=== PATIENT | male | born 1960 | race Caucasian/White ===

== ENCOUNTER 2018-04-08 20:12 | Inpatient (IN) | payer OTHER ==
--- NOTE | 2018-04-08 20:21 | PDOC ---
Rapid Medical Evaluation Chief Complaint: Chest Pain Time Seen by Provider: 04/08/18 20:16 Medical Evaluation: 04/08/18 20:17 I have performed a brief in-person evaluation of this patient. The patient presents with a chief complaint of: (friends brought patient in, states has been trying to bring x 3 days). Palpitations and Chest pain x 1 week , but been binge drinking. Had alcohol related incident last year same. + pacemaker 2007 . Some SOB/ cough Pertinent physical exam findings: + intoxicated - alert but unable to answer questions.; 93%pulse ox/ I have ordered the following: EKG The patient will proceed to the ED for further evaluation. 04/08/18 20:21 04/08/18 20:23 Discharge Disposition - Diagnosis Palpitations - Referrals - Patient Instructions - Post Discharge Activity
--- NOTE | 2018-04-08 20:45 | PDOC ---
Attending Attestation - Resident Resident Name: Maya Wood - ED Attending Attestation I have performed the following: I have examined & evaluated the patient, The case was reviewed & discussed with the resident, I agree w/resident's findings & plan, Exceptions are as noted - HPI HPI: 04/08/18 22:09 57y M hx of CAD s/p [place] sp AICD, etoh abuse, presents for evaluation of CP. Pt has been binge drinking whiskey the past few weeks, and endorses feeling episodic L sided chest pain that is sharp in nature and lasts for several hours. Denies associated n/v, sob, diaphoresis, or radiation of the pain. No exertional nature of the pain. Pt dnies any cp currently. - Physicial Exam PE: 04/08/18 22:11 GENERAL: The patient is awake, alert, and fully oriented, Nontoxic - in no acute distress. HEAD: Normocephalic, atraumatic. EYES: extraocular movements intact, sclera anicteric, conjunctiva clear. ENT: Normal voice, dry mucous membranes. NECK: Normal range of motion, supple LUNGS: Breath sounds equal, clear to auscultation bilaterally. No wheezes, no rhonchi, no rales. HEART: Regular rate and rhythm, normal S1 and S2 without murmur, rub or gallop. ABDOMEN: Soft, nontender, No guarding, no rebound. . No CVA tenderness EXTREMITIES: Normal range of motion, trace pitting edema. NEUROLOGICAL: No facial assymetry, Normal speech, PSYCH: Normal mood, normal affect. SKIN: Warm, Dry, normal turgor, - Medical Decision Making 04/08/18 21:17 will r/o ACS asa given will observe for withdrawal anticipae observation 04/08/18 23:33 His labs were reviewed was noted have a troponin of 0.17. lipase was also elevated in the 400s. Will admit to medicine for further management of chest pain Heart Score/ECG Review - ECG Impressions Comment:: 04/08/18 22:15 Twelve-lead EKG was performed and reviewed by me. There is normal sinus rhythm with a normal rate. Rate of 93 Incomplete right bundle-branch block LVH Abnormal R wave progression No prior EKGs for comparison
[2018-04-08] MEDS ORDERED: ASPIRIN 81 MG CHEWABLE TABLETS PO ONE (20:55)
--- NOTE | 2018-04-08 21:01 | PDOC ---
History of Present Illness - General Chief Complaint: Chest Pain Stated Complaint: ALCOHOL INTOXICATION Time Seen by Provider: 04/08/18 20:16 History Source: Patient, Friend Exam Limitations: Intoxication - History of Present Illness Initial Comments: Pt is a 57 yo M, with PMH of alcohol abuse ("drinking whiskey all through the day"), HTN and cardiac history ([place] and pacemaker placed 2007), who is presenting with chest pain since this afternoon, and was brought to the ER by his friends. Pt is intoxicated and cannot describe exactly what the chest pain is like. He was previously on anti-coagulation for "a clot" but does not know the details, and has not been taking the medication for some time. Pt states he is not having nausea/vomiting or radiation to his arms like his prior [place]. However his friends state that this time every year the pt binge drinks heavily for about 2-3 weeks and has chest pain symptoms. The pt does desire to go to rehab. He has had seizures from withdrawal and has been intubated in the past. Pts last drink was in the cab on the way to the hospital. Pt has no family in [place] and lives by himself. Friend's name is Khari and can be reached at [phone]. Pt denies any cigarette or drug use. Pt denies any recent travel or sick contacts. 04/08/18 20:57 04/08/18 22:06 Past History - Travel Traveled outside of the country in the last 30 days: No Close contact w/someone who was outside of country & ill: No - Past Medical History Allergies/Adverse Reactions: Allergies Allergy/AdvReac Type Severity Reaction Status Date / Time No Known Allergies Allergy Verified 04/08/18 20:19 Home Medications: Ambulatory Orders Aspirin [ASA -] 81 mg PO DAILY 04/08/18 Chlordiazepoxide [Librium -] 25 mg PO TID 04/08/18 Cardiac Disorders: Yes (PACEMAKER) Hx Myocardial Infarction: Yes COPD: No DVT: No Diabetes: No HTN: Yes Seizures: Yes (alcohol withdrawal) - Surgical History Cardiac Surgery: Yes (PACEMAKER) - Family Disease History Family Disease History: Heart Disease: Mother ([place] in 70s) - Suicide/Smoking/Psychosocial Hx Smoking History: Never smoked Review of Systems - Review of Systems Able to Perform ROS?: Yes (limited/tox) Is the patient limited Kyrgyz proficient: Yes Constitutional: Yes: Weight Stable. No: Fever, Loss of Appetite HEENTM: No: Recent change in vision, Nose Congestion, Throat Pain Respiratory: No: Cough, Orthopnea, Shortness of Breath Cardiac (ROS): Yes: Chest Pain (details unclear, unable to describe quality or exacerbating/alleviating factors). No: Edema, Irregular Heart Rate, Palpitations, Syncope ABD/GI: No: Diarrhea, Nausea, Poor Appetite, Poor Fluid Intake, Vomiting : No: Pain Musculoskeletal: No: Back Pain, Joint Pain Neurological: Yes: Seizure (alcohol withdrawal), Unsteady Gait (alcohol use). No: Ataxia, Dizziness Psychiatric: Yes: Emotional Problems (binge drinking this time of year for weeks , every year). No: Change in Appetite Endocrine: No: Change in Weight Hematologic/Lymphatic: Yes: Blood Clots (uncertain history? prior anticoagulation). No: Anemia, Easy Bleeding, Easy Bruising All Other Systems: Reviewed and Negative *Physical Exam - Vital Signs Last Vital Signs Temp Pulse Resp BP Pulse Ox 97.8 F 105 H 16 128/88 94 L 04/08/18 20:16 04/08/18 20:16 04/08/18 20:16 04/08/18 20:16 04/08/18 20:16 - Physical Exam General Appearance: Yes: Nourished, Appropriately Dressed, Alcohol on Breath, Intoxicated. No: Apparent Distress (pt intoxicated, but lying comfortably and can answer some questions. Rambling speech.) HEENT: positive: EOMI, MARIANA, Normal Voice, Hearing Grossly Normal, Other (dark, hairy tongue). negative: Normal ENT Inspection, Pharynx Normal, Scleral Icterus (R), Scleral Icterus (L), Pharyngeal Erythema, Tonsillar Exudate, Tonsillar Erythema, Nasal Congestion, Rhinorrhea, Thrush Neck: positive: Trachea midline, Normal Thyroid, Supple. negative: Tender, Rigid, Lymphadenopathy (R), Lymphadenopathy (L) Respiratory/Chest: positive: Lungs Clear, Normal Breath Sounds. negative: Chest Tender, Respiratory Distress, Accessory Muscle Use, Labored Respiration, Crackles, Wheezing Cardiovascular: positive: Regular Rhythm, S1, S2, Tachycardia. negative: Regular Rate, Edema, JVD, Murmur Vascular Pulses: Carotid (R): 4+, Carotid (L): 4+ Gastrointestinal/Abdominal: positive: Normal Bowel Sounds, Flat, Soft. negative : Tender, Organomegaly, Pulsatile Mass, Distended, Guarding, Rebound Rectal Exam: positive: deferred Lymphatic: negative: Adenopathy, Tenderness Musculoskeletal: positive: Normal Inspection. negative: CVA Tenderness Extremity: positive: Normal Capillary Refill, Normal Inspection, Normal Range of Motion, Pelvis Stable. negative: Tender, Pedal Edema, Calf Tenderness Integumentary: positive: Normal Color, Dry, Warm. negative: Jaundice, Clammy, Diaphoresis, Ecchymosis Neurologic: positive: drafter II-XII NML intact, Alert, Normal Response, Motor Strength 5/5, Depressed Affect. negative: Fully Oriented (oriented to year, person, and place), Normal Mood/Affect (intoxicated), EOM Palsy, Facial Droop ED Treatment Course - LABORATORY CBC & Chemistry Diagram: 04/08/18 21:40 04/08/18 21:40 - RADIOLOGY Radiology Studies Ordered: Category Date Time Status CHEST X-RAY PORTABLE* [RAD] Stat Radiology 04/08/18 20:53 Ordered Medical Decision Making - Medical Decision Making Pt was seen at bedside, also will be seen by attending Dr. Sevilla. Pt presenting with chest pain since this afternoon, and was brought to the ER by his friends. Pt is intoxicated and cannot describe exactly what the chest pain is like. He has PMH of alcohol abuse ("drinking whiskey all through the day") and cardiac history ([place] and pacemaker placed 2007), and HTN. He was previously on anti- coagulation for "a clot" but does not know the details, and has not been taking the medication for some time. Pt states he is not having nausea/vomiting or radiation to his arms like his prior [place]. However his friends state that this time every year the pt binge drinks heavily for about 2-3 weeks and has chest pain symptoms. The pt does desire to go to rehab. He has had seizures from withdrawal and has been intubated in the past. Pts last drink was in the cab on the way to the hospital. Vitals stable, pt tachycardic (105), BP 128/88, O2 94% (will continue to monitor vital signs). PE showed intoxicated man, unable to ambulate without assistance. Oriented to person, year, president (does not know month or day). Pacemaker in L upper chest. No focal chest tenderness, heart and lung sounds clear, no murmur/rubs. No jvd or LE swelling. drafter and muscular strength intact. No tongue fasciculation or hand tremor noted. Dark hairy tongue present. Considering ACS vs angina vs pancreatitis. Minimal suspicion of AAA/dissection ( pt vitals stable, no radiation to abdomen or back). Minimal suspicion of PE given no SOB, no recent travel/bedrest. Ordered work-up including CBC, CMP, lipase, ECG, cardiac profile, coags, UA, urine culture, alcohol level and chest x-ray. Pt currently denying any pain medication. Will continue to reassess pt and monitor for symptomatic improvement, as well as any interventions needed for withdrawal. Providing pt with 243 mg PO aspirin (pt took 1 baby aspirin this AM). 04/08/18 20:56 04/08/18 21:37 ECG showed RBBB, ST changes in V1, V2, no reciprocal changes, intervals WNL. BP 146/102, O2 94% on RA, HR 95. Pt sleeping comfortably. Labs were sent and are pending. 04/08/18 22:14 CBC: platelets 117 CMP: AST 124, ALT 116, otherwise generally WNL Coags WNL Alcohol 300 Lipase 503 CKMB 4.8, Trop .17 Placed order for second troponin (draw at 00:40), providing 50 mg librium and IV banana bag. Discussed case with Dr. Camargo, who has accepted the pt. Decision to admit order placed for telemetry observation. 04/08/18 23:40 Pt was taken to telemetry floor for additional monitoring. Pt was stable when leaving department. 04/09/18 01:55 *DC/Admit/Observation/Transfer Diagnosis at time of Disposition: Chest pain Qualifiers: Chest pain type: unspecified Qualified Code(s): R07.9 - Chest pain, unspecified Alcohol intoxication Qualifiers: Complication of substance-induced condition: uncomplicated Qualified Code(s): F10.920 - Alcohol use, unspecified with intoxication, uncomplicated - Discharge Dispostion Decision to Admit order: Yes - Referrals - Patient Instructions - Post Discharge Activity
[2018-04-08] MEDS ORDERED: ASPIRIN 81 MG CHEWABLE TABLETS ONE ×2 (21:32→21:44)
[2018-04-08 22:15] LABS: BASO % 0.2 % (0-2.0); EOS % 2.2 % (0-4.5); HEMATOCRIT 43.2 % (35.4-49); HEMOGLOBIN 14.8 GM/dL (11.7-16.9); LYMPH % 26.9 % (8-40); MCHC 34.3 g/dl (32.0-35.9); MEAN CELL VOLUME 90.4 fl (80-96); MEAN PLT VOLUME 7.8 fl (7.5-11.1); MONO % 7.8 % (3.8-10.2); NEUT % 62.9 % (42.8-82.8); PLATELET COUNT 117 K/MM3 (134-434); RBC 4.78 M/mm3 (4.00-5.60); RDW 13.4 % (11.9-15.9); WHITE BLOOD COUNT 5.5 K/mm3 (4.0-10.0)
[2018-04-08 22:29] LABS: INR 0.97 (0.83-1.09); PROTHROMBIN TIME (PATIENT) 11.5 SEC (9.7-13.0)
[2018-04-08 22:32] LABS: ACTIVATED PTT 28.9 SECONDS (25.2-36.5)
[2018-04-08 22:36] LABS: ALK PHOS 117 U/L (45-117); ANION GAP 12 MMOL/L (8-16); BILIRUBIN,TOTAL 0.9 mg/dL (0.2-1); BLOOD UREA NITROGEN 12 mg/dL (7-18); CALCIUM 8.1 mg/dL (8.5-10.1); CHLORIDE 100 mmol/L (98-107); CO2 28 mmol/L (21-32); CREATININE 0.7 mg/dL (0.55-1.3); GLUCOSE,RANDOM 92 mg/dL (74-106); POTASSIUM 3.7 mmol/L (3.5-5.1); SGOT/AST 124 U/L (15-37); SGPT/ALT 116 U/L (13-61); SODIUM 140 mmol/L (136-145); TOT PROT 7.1 g/dl (6.4-8.2)
[2018-04-08] MEDS ORDERED: chlordiazePOXIDE HCL 25 MG CAPSULE PO ONE (23:31)
[2018-04-08] MEDS ORDERED: chlordiazePOXIDE HCL 25 MG CAPSULE ONE (23:37)
[2018-04-08] MEDS ORDERED: FOLIC ACID INJECTION - 1 MG, THIAMINE HCL 100 MG, MULTIVIT INJECTION ADULT 10 ML in SOD... IVPB ONE (23:48)
--- NOTE | 2018-04-09 00:39 | PN ---
Teaching Attending Note Name of Resident: Julissa Ritter ATTENDING PHYSICIAN STATEMENT I saw and evaluated the patient. I reviewed the resident's note and discussed the case with the resident. I agree with the resident's findings and plan as documented. SUBJECTIVE: Patient is a 57 year old man with PMH of alcohol abuse ("drinking whiskey all through the day"), HTN, CAD (MD and pacemaker/defibrillator placed at [facility] in 2007) and unspecified arrhythmia who presents with chest pain since this afternoon. Was brought to the ER by his friends. He is intoxicated and cannot describe exactly what the chest pain is like. He was previously on anti- coagulation for "a clot" but does not know the details, and has not been taking the medication for some time. He is not having nausea/vomiting or radiation to his arms like his prior [place]. However his friends state that this time every year the patient binge drinks heavily for about 2-3 weeks and has chest pain symptoms. He has had seizures from withdrawal and has been intubated in the past. His last drink was in the cab on the way to the hospital. 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 OBJECTIVE: Awake, intoxicated and mumbling Vital Signs Period Temp Pulse Resp BP Sys/Kohli Pulse Ox Last 24 Hr 97.8 F 85-105 14-18 128-146/88-102 94-96 HEENT: No Jaundice, eye redness or discharge, PERRLA, EOMI. Normocephalic, atraumatic. External ears are normal and hearing is grossly intact. No nasal discharge. Neck: Supple, nontender. No palpable adenopathy or thyromegaly. No JVD Chest: Defibrillator left chest wall. Good effort. Clear to auscultation and percussion. Heart: Regular. No S3, rub or murmur Abdomen: Not distended, soft, nontender and no HSM. No rebound or guarding. Normoactive bowel sounds. Ext: Peripheral pulses intact. No leg edema. Finger clubbing with unkempt finger nails. Skin: Warm and dry. No petechiae, rash or ecchymosis. Neuro: Somnolent but readily arousable. Disoriented. No tremors or asterexis. Sensation grossly intact in all four extremities and DTR are symmetric. Current Medications Generic Name Dose Route Start Last Admin Trade Name Freq PRN Reason Stop Dose Admin Folic Acid 1 mg/ Thiamine HCl 1,000 mls @ 125 mls/hr 04/08/18 23:48 04/09/18 00:25 100 mg/ Multivitamins/Minerals IVPB 04/09/18 07:47 125 mls/hr 10 ml/ Sodium Chloride ONCE ONE Administration Home Medications Medication Instructions Recorded Aspirin [ASA -] 81 mg PO DAILY 04/08/18 Chlordiazepoxide [Librium -] 25 mg PO TID 04/08/18 Abnormal Lab Results 04/08/18 04/08/18 04/08/18 21:40 21:40 21:40 Plt Count 117 L Calcium 8.1 L AST 124 H ALT 116 H Creatine Kinase 441 H CK-MB (CK-2) 4.8 H Troponin I 0.17 H Lipase Ur Specific [place] Alcohol, Quantitative 300.67478 H 04/08/18 04/09/18 21:40 00:52 Plt Count Calcium AST ALT Creatine Kinase CK-MB (CK-2) Troponin I Lipase 503 H Ur Specific [place] 1.006 L Alcohol, Quantitative ASSESSMENT AND PLAN: 1. Chest pain - Now painfree with elevated troponin but no ACS changes on EKG. No acute pathology on CXR. Will admit to telemetry to rule out ACS. Got Aspirin in the ER. Will get ECHO, consult cardiology and retrieve his records from [facility]. Will decide on anticoagulation based on repeat troponin. 2. Alcohol intoxication - Getting IV Banana bag. Implement CIWA librium alcohol withdrawal protocol, fall and aspiration precautions. Treat with thiamine and folic acid and monitor electrolytes (Ca,Mg,K,P). Get upper abdominal sonogram and hepatitis serology to investigate elevated LFTs and thrombocytopenia. Ethylbenzene Oxidizer patient about abstaining from alcohol and refer to alcohol detox upon discharge. Consult engineering specialist technician. 3. DVT prophylaxis - Lovenox 40 mg SQ q 24 hours. 4. Advance directives - Full code
[2018-04-09 01:04] LABS: URINE APPEARANCE CLEAR; URINE BILIRUBIN NEGATIVE (<2.0 mg/dL); URINE COLOR LTYELLOW; URINE GLUCOSE (UA) NEGATIVE (NEGATIVE); URINE KETONE NEGATIVE (NEGATIVE); URINE LEUK ESTERASE NEGATIVE (NEGATIVE); URINE NITRITE NEGATIVE (NEGATIVE); URINE PROTEIN NEGATIVE (NEGATIVE); URINE UROBILINOGEN 4.0 E.U/dl mg/dL (0.2-1.0)
[2018-04-09 01:09] LABS: COCAINE, UR NEGATIVE ng/ml (CUTOFF=300); METHADONE, UR NEGATIVE ng/ml (CUTOFF=300); OPIATES, URI NEGATIVE ng/ml (CUTOFF=300); PHENCYCLIDINE,URINE NEGATIVE ng/ml (CUTOFF=25); URINE AMPHETAMINES NEGATIVE ng/ml (CUTOFF=500); URINE BARBITURATES NEGATIVE ng/ml (CUTOFF=200); URINE BENZODIAZEPINES NEGATIVE ng/ml (CUTOFF=200)
[2018-04-09] MEDS ORDERED: HEPARIN NA (PORCINE) 5,000 UNITS/ML 1ML VIAL ONE (01:37)
[2018-04-09] MEDS: HEPARIN NA (PORCINE) 5,000 UNITS/ML 1ML VIAL SQ SCH ×4 (01:40→22:15)
--- NOTE | 2018-04-09 01:58 | HP ---
CHIEF COMPLAINT: chest pain, intoxication PCP: unknown HISTORY OF PRESENT ILLNESS: Patient is a 57 y/o male with a history of CAD s/p [place] with ACID and alcohol abuse who presents intoxicated with chest pain. He reports he has this chest pain on and off and currently reports he doesn't have any pain. he was not able to describe the pain. Patient reports ten years ago he had an episode of seizures where he was intubated and at [facility] and the defibrillator was placed. He believes he had the defibrillator place for arrythmias. He had another episode 3-4? years ago where he had a [place]. Patient reports he follows with a Lending Consultant, currently unsure of the location. Patient denies being short of breath. Patient is intoxicated and is a poor historian. ER course was notable for: (1) ASA 243 (2) Librium 50 once (3) Recent Travel: PAST MEDICAL HISTORY: CAD s/p [place] with ACID and alcohol abuse PAST SURGICAL HISTORY: unknown Social History: Smoking: denies Alcohol: 1-1.5 bottles of whiskey a day Drugs: denies Family History: father of liver cancer at 60 Allergies No Known Allergies Allergy (Verified 04/08/18 20:19) HOME MEDICATIONS: Home Medications Medication Instructions Recorded Aspirin [ASA -] 81 mg PO DAILY 04/08/18 Chlordiazepoxide [Librium -] 25 mg PO TID 04/08/18 REVIEW OF SYSTEMS CONSTITUTIONAL: Absent: fever, chills, diaphoresis, generalized weakness, malaise, loss of appetite, weight change HEENT: Absent: rhinorrhea, nasal congestion, throat pain, throat swelling, difficulty swallowing, mouth swelling, ear pain, eye pain, visual changes CARDIOVASCULAR: chest pain Absent: , syncope, palpitations, irregular heart rate, lightheadedness, peripheral edema RESPIRATORY: Absent: cough, shortness of breath, dyspnea with exertion, orthopnea, wheezing, stridor, hemoptysis GASTROINTESTINAL: Absent: abdominal pain, abdominal distension, nausea, vomiting, diarrhea, constipation, melena, hematochezia GENITOURINARY: Absent: dysuria, frequency, urgency, hesitancy, hematuria, flank pain, genital pain MUSCULOSKELETAL: Absent: myalgia, arthralgia, joint swelling, back pain, neck pain SKIN: Absent: rash, itching, pallor HEMATOLOGIC/IMMUNOLOGIC: Absent: easy bleeding, easy bruising, lymphadenopathy, frequent infections ENDOCRINE: Absent: unexplained weight gain, unexplained weight loss, heat intolerance, cold intolerance NEUROLOGIC: Absent: headache, focal weakness or paresthesias, dizziness, unsteady gait, seizure, mental status changes, bladder or bowel incontinence PSYCHIATRIC: Absent: anxiety, depression, suicidal or homicidal ideation, hallucinations. PHYSICAL EXAMINATION Vital Signs - 24 hr 04/08/18 04/08/18 04/08/18 20:16 20:45 22:55 Temperature 97.8 F Pulse Rate 105 H Pulse Rate [ 94 H 94 H Right Radial] Respiratory 16 18 18 Rate Blood Pressure 128/88 Blood Pressure 146/102 H 136/90 [Right Arm] O2 Sat by Pulse 94 L 96 95 Oximetry (%) 04/08/18 04/09/18 23:30 00:40 Temperature 98.2 F Pulse Rate Pulse Rate [ 85 91 H Right Radial] Respiratory 14 16 Rate Blood Pressure Blood Pressure 137/99 136/96 [Right Arm] O2 Sat by Pulse 95 97 Oximetry (%) GENERAL: Awake, alert, HEAD: Normal with no signs of trauma. EYES: Pupils equal, round and reactive to light, extraocular movements intact EARS, NOSE, THROAT: Moist mucous membranes. NECK: Normal range of motion LUNGS: Breath sounds equal, clear to auscultation bilaterally. No wheezes, and no crackles. No accessory muscle use. HEART: Regular rate and rhythm, normal S1 and S2 without murmur, rub or gallop. ACID at upper left chest ABDOMEN: Soft, nontender, not distended, normoactive bowel sounds, no guarding, no rebound, no masses. No hepatomegaly MUSCULOSKELETAL: Normal range of motion at all joints. No bony deformities or tenderness. No CVA tenderness. LOWER EXTREMITIES: 2+ pulses, warm, well-perfused. No calf tenderness. No peripheral edema. . PSYCHIATRIC: Cooperative. SKIN: Warm, dry, normal turgor, no rashes or lesions noted, normal capillary refill. Laboratory Results - last 24 hr CBC, BMP 04/08/18 21:40 04/08/18 21:40 Urine Test Results Urine Color Ltyellow 04/09/18 00:52 Urine Appearance Clear 04/09/18 00:52 Urine pH 6.0 (5.0-8.0) 04/09/18 00:52 Ur Specific [place] 1.006 (1.010-1.035) L 04/09/18 00:52 Urine Protein Negative (NEGATIVE) 04/09/18 00:52 Urine Glucose (UA) Negative (NEGATIVE) 04/09/18 00:52 Urine Ketones Negative (NEGATIVE) 04/09/18 00:52 Urine Blood Negative (NEGATIVE) 04/09/18 00:52 Urine Nitrite Negative (NEGATIVE) 04/09/18 00:52 Urine Bilirubin Negative (<2.0 mg/dL) 04/09/18 00:52 Ur Leukocyte Esterase Negative (NEGATIVE) 04/09/18 00:52 ASSESSMENT/PLAN: Patient is a 57 y/o male with a history of CAD s/p [place] with ACID and alcohol abuse who presents intoxicated with chest pain. #chest pain r/o ACS - positive history of [place] and ACID placement - trop .17, repeat .20, f/u repeat @ 6am - EKG: LVH, incomplete RBB, repeat EKG - ASA 243 given - monitor on tele obs - f/u echo - f/u Cardio #alcohol intoxication - Alcohol level: 300 - monitor CIWA, history of DT's in the past - begin Librium protocol - consult Dr. Bliss, patient expresses wish to go to Detox - fall precautions - seizure precautions #transaminitis - AST: 124 ALT: 116 - f/u abd US - f/u hepatitis panel - continue to trend - if does not trend down consider GI consult #CAD history - continue aspirin 81 mg daily - patient unable to recall Cardizem dose so NOT restarted - pharmacy called and close, med rec in morning #mild thrombocytopenia - unknown cause, alcohol marrow suppression vs splenomegaly due to portal hypertension - Plt: 117 - f/u abd US Visit type - Emergency Visit Emergency Visit: Yes ED Registration Date: 04/08/18 Care time: The patient presented to the Emergency Department on the above date and was hospitalized for further evaluation of their emergent condition. - New Patient This patient is new to me today: Yes Date on this admission: 04/09/18 - Critical Care Critical Care patient: No
[2018-04-09] MEDS: chlordiazePOXIDE HCL 25 MG CAPSULE PO SCH ×4 (06:19→22:14)
[2018-04-09 07:33] LABS: BASO % 0.3 % (0-2.0); HEMATOCRIT 40.2 % (35.4-49); HEMOGLOBIN 13.5 GM/dL (11.7-16.9); LYMPH % 28.4 % (8-40); MCH 30.4 pg (25.7-33.7); MCHC 33.6 g/dl (32.0-35.9); MEAN CELL VOLUME 90.5 fl (80-96); MEAN PLT VOLUME 7.9 fl (7.5-11.1); MONO % 6.8 % (3.8-10.2); NEUT % 59.5 % (42.8-82.8); PLATELET COUNT 96 K/MM3 (134-434); RBC 4.44 M/mm3 (4.00-5.60); RDW 13.5 % (11.9-15.9); WHITE BLOOD COUNT 4.4 K/mm3 (4.0-10.0)
--- NOTE | 2018-04-09 07:38 | EKG ---
Test Reason : Blood Pressure : / mmHG Vent. Rate : 094 BPM Atrial Rate : 094 BPM P-R Int : 174 ms QRS Dur : 096 ms QT Int : 352 ms P-R-T Axes : 048 -40 053 degrees QTc Int : 440 ms NORMAL SINUS RHYTHM LEFT AXIS DEVIATION CANNOT RULE OUT ANTEROSEPTAL INFARCT (CITED ON OR BEFORE 08-APR-2018) ABNORMAL ECG WHEN COMPARED WITH ECG OF 08-APR-2018 20:25, NO SIGNIFICANT CHANGE WAS FOUND Confirmed by EDEL PICKENS MD ([id number]) on 04/09/2018 7:37:48 AM Referred By: Confirmed By:EDEL PICKENS MD
--- NOTE | 2018-04-09 07:40 | EKG ---
Test Reason : Blood Pressure : / mmHG Vent. Rate : 093 BPM Atrial Rate : 093 BPM P-R Int : 180 ms QRS Dur : 102 ms QT Int : 354 ms P-R-T Axes : 053 -41 040 degrees QTc Int : 440 ms NORMAL SINUS RHYTHM POSSIBLE LEFT ATRIAL ENLARGEMENT LEFT AXIS DEVIATION INCOMPLETE RIGHT BUNDLE BRANCH BLOCK LEFT VENTRICULAR HYPERTROPHY SEPTAL INFARCT , AGE UNDETERMINED ABNORMAL ECG NO PREVIOUS ECGS AVAILABLE Confirmed by EDEL PICKENS MD ([id number]) on 04/09/2018 7:40:13 AM Referred By: Confirmed By:EDEL PICKENS MD
[2018-04-09] MEDS ORDERED: PNEUMOC 13-VAL CONJ-DIP CRM/PF 0.5 ML DISP.SYRIN IM ONE (08:01)
[2018-04-09 08:08] LABS: ALBUMIN 3.5 g/dl (3.4-5.0); ALK PHOS 106 U/L (45-117); ANION GAP 12 MMOL/L (8-16); BLOOD UREA NITROGEN 13 mg/dL (7-18); CALCIUM 7.7 mg/dL (8.5-10.1); CHLORIDE 103 mmol/L (98-107); CO2 26 mmol/L (21-32); CREATININE 0.7 mg/dL (0.55-1.3); GLUCOSE,RANDOM 78 mg/dL (74-106); MAGNESIUM 1.9 mg/dL (1.8-2.4); PHOSPHOROUS 3.6 mg/dL (2.5-4.9); POTASSIUM 3.7 mmol/L (3.5-5.1); SGOT/AST 101 U/L (15-37); SGPT/ALT 96 U/L (13-61); SODIUM 141 mmol/L (136-145); TOT PROT 6.3 g/dl (6.4-8.2)
[2018-04-09] MEDS ORDERED: PNEUMOCOCCAL 23 VACCINE 0.5 ML VIAL IM ONE (10:00)
[2018-04-09] MEDS ORDERED: FLU VACCINE QUAD 60 MCG/0.5 ML (MDV 18-19) IM ONE (10:00)
[2018-04-09] MEDS ORDERED: ASPIRIN 81 MG CHEWABLE TABLETS PO SCH (10:00)
--- NOTE | 2018-04-09 10:17 | ECHO ---
Name: VALERI MORRIS Exam:Adult Echocardiogram Study Date: 04/09/2018 09:33 AM Age: 57 yrs Reason For Study: R/O ACS Height: 66 in Weight: 150 lb BSA: 1.8 m2 MMode/2D Measurements & Calculations IVSd: 0.76 cm Ao root diam: 3.7 cm LVIDd: 4.4 cm LA dimension: 3.1 cm LVIDs: 2.8 cm LVPWd: 0.81 cm EDV(Teich): 88.0 ml ESV(Teich): 30.5 ml Doppler Measurements & Calculations MV E max horacio: 47.4 cm/sec MR max horacio: 458.2 cm/sec MV A max horacio: 65.6 cm/sec MR max P.0 mmHg MV E/A: 0.72 TR max horacio: 190.1 cm/sec Med Peak E' Horacio: 8.2 cm/sec TR max P.5 mmHg Med E/e': 5.8 Lat Peak E' Horacio: 11.1 cm/sec Lat E/e': 4.3 Left Ventricle Left ventricular systolic function is grossly normal. Ejection Fraction = 50-55%. The transmitral spe ctral Doppler flow pattern is suggestive of impaired LV relaxation. Right Ventricle There is a pacemaker lead in the right ventricle. The right ventricle is grossly normal size. The rig ht ventricular systolic function is grossly normal. Atria Normal left and right atrial size and function. Mitral Valve The mitral valve is grossly normal. There is no mitral valve stenosis. There is mild mitral regurgita tion. Tricuspid Valve The tricuspid valve is not well visualized, but is grossly normal. There is mild tricuspid regurgitat ion. Aortic Valve The aortic valve opens well. No hemodynamically significant valvular aortic stenosis. No aortic regur gitation is present. Pulmonic Valve The pulmonic valve is not well seen, but is grossly normal. There is no pulmonic valvular stenosis. T here is no pulmonic valvular regurgitation. Great Vessels Borderline aortic root dilatation. Pericardium/Pleura There is no pericardial effusion. Interpretation Summary Left ventricular systolic function is grossly normal. Ejection Fraction = 50-55%. The transmitral spectral Doppler flow pattern is suggestive of impaired LV relaxation. There is a pacemaker lead in the right ventricle. The right ventricular systolic function is grossly normal. There is mild mitral regurgitation. There is mild tricuspid regurgitation. Borderline aortic root dilatation. There is no pericardial effusion. MD Guaman *Gretchen 04/09/2018 10:17 AM
--- NOTE | 2018-04-09 10:43 | CON.CARD ---
Cardiology Consult (text) - Consultation Consultation Note: cc: cp hpi: 57 m hx etoh abuse, cad/mi, icd, here with cp. Pt is intoxicated from etoh so history is limited. He denies current cp or sob or palps. Has been binge drinking for weeks and occasionally notices left upper abd pain, burning. He does not provide any details of his cad/mi/icd hx. pmh: per hpi psh: icd social: +etoh fam: unknown ros: unable to obtain 2/2 ams meds: Home Medications Medication Instructions Recorded Aspirin [ASA -] 81 mg PO DAILY 04/08/18 Chlordiazepoxide [Librium -] 25 mg PO TID 04/08/18 pe: Vital Signs Period Temp Pulse Resp BP Sys/Kohli Pulse Ox Last 24 Hr 97.8 F-98.4 F 85-105 14-18 123-146/69-102 94-98 nad no jvd rrr s1s2 no mrg cta bl, poor eff lethargic but arousable abd nt nd pos bs no jaundice diaphoresis +dp pt no carotid bruits no le e/c/c Laboratory Last Values WBC 4.4 K/mm3 (4.0-10.0) 04/09/18 05:30 RBC 4.44 M/mm3 (4.00-5.60) 04/09/18 05:30 Hgb 13.5 GM/dL (11.7-16.9) 04/09/18 05:30 Hct 40.2 % (35.4-49) 04/09/18 05:30 MCV 90.5 fl (80-96) 04/09/18 05:30 MCH 30.4 pg (25.7-33.7) 04/09/18 05:30 MCHC 33.6 g/dl (32.0-35.9) 04/09/18 05:30 RDW 13.5 % (11.9-15.9) 04/09/18 05:30 Plt Count 96 K/MM3 (134-434) L 04/09/18 05:30 MPV 7.9 fl (7.5-11.1) 04/09/18 05:30 Absolute Neuts (auto) 2.6 K/mm3 (1.5-8.0) 04/09/18 05:30 Neutrophils % 59.5 % (42.8-82.8) 04/09/18 05:30 Lymphocytes % 28.4 % (8-40) 04/09/18 05:30 Monocytes % 6.8 % (3.8-10.2) 04/09/18 05:30 Eosinophils % 5.0 % (0-4.5) H D 04/09/18 05:30 Basophils % 0.3 % (0-2.0) 04/09/18 05:30 Nucleated RBC % 0 % (0-0) 04/09/18 05:30 PT with INR 11.50 SEC (9.7-13.0) 04/08/18 21:40 INR 0.97 (0.83-1.09) 04/08/18 21:40 PTT (Actin FS) 28.9 SECONDS (25.2-36.5) 04/08/18 21:40 Sodium 141 mmol/L (136-145) 04/09/18 05:30 Potassium 3.7 mmol/L (3.5-5.1) 04/09/18 05:30 Chloride 103 mmol/L (98-107) 04/09/18 05:30 Carbon Dioxide 26 mmol/L (21-32) 04/09/18 05:30 Anion Gap 12 MMOL/L (8-16) 04/09/18 05:30 BUN 13 mg/dL (7-18) 04/09/18 05:30 Creatinine 0.7 mg/dL (0.55-1.3) 04/09/18 05:30 Creat Clearance w eGFR > 60 (>60) 04/09/18 05:30 Random Glucose 78 mg/dL (74-106) 04/09/18 05:30 Calcium 7.7 mg/dL (8.5-10.1) L 04/09/18 05:30 Phosphorus 3.6 mg/dL (2.5-4.9) 04/09/18 05:30 Magnesium 1.9 mg/dL (1.8-2.4) 04/09/18 05:30 Total Bilirubin 1.0 mg/dL (0.2-1) 04/09/18 05:30 AST 101 U/L (15-37) H 04/09/18 05:30 ALT 96 U/L (13-61) H 04/09/18 05:30 Alkaline Phosphatase 106 U/L (45-117) 04/09/18 05:30 Creatine Kinase 441 IU/L (26-308) H 04/08/18 21:40 Creatine Kinase Index 1.0 % (0.0-5.0) 04/08/18 21:40 CK-MB (CK-2) 4.8 ng/mL (0.5-3.6) H 04/08/18 21:40 Troponin I 0.17 ng/ml (0.00-0.05) H 04/09/18 05:30 Total Protein 6.3 g/dl (6.4-8.2) L 04/09/18 05:30 Albumin 3.5 g/dl (3.4-5.0) 04/09/18 05:30 Lipase 503 U/L (73-393) H 04/08/18 21:40 Urine Color Ltyellow 04/09/18 00:52 Urine Appearance Clear 04/09/18 00:52 Urine pH 6.0 (5.0-8.0) 04/09/18 00:52 Ur Specific [place] 1.006 (1.010-1.035) L 04/09/18 00:52 Urine Protein Negative (NEGATIVE) 04/09/18 00:52 Urine Glucose (UA) Negative (NEGATIVE) 04/09/18 00:52 Urine Ketones Negative (NEGATIVE) 04/09/18 00:52 Urine Blood Negative (NEGATIVE) 04/09/18 00:52 Urine Nitrite Negative (NEGATIVE) 04/09/18 00:52 Urine Bilirubin Negative (<2.0 mg/dL) 04/09/18 00:52 Urine Urobilinogen 4.0 e.u/dl mg/dL (0.2-1.0) 04/09/18 00:52 Ur Leukocyte Esterase Negative (NEGATIVE) 04/09/18 00:52 Opiates Screen Negative ng/ml (FADYUI=095) 04/09/18 00:40 Methadone Screen Negative ng/ml (IUPVRC=722) 04/09/18 00:40 Barbiturate Screen Negative ng/ml (NLVBNL=182) 04/09/18 00:40 Phencyclidine Screen Negative ng/ml (CUTOFF=25) 04/09/18 00:40 Ur Amphetamines Screen Negative ng/ml (OPMJGD=689) 04/09/18 00:40 MDMA (Ecstasy) Screen Negative ng/ml (TDQENZ=999) 04/09/18 00:40 Benzodiazepines Screen Negative ng/ml (VFRZGG=244) 04/09/18 00:40 Cocaine Screen Negative ng/ml (UAJJCG=751) 04/09/18 00:40 U Marijuana (THC) Screen Negative ng/ml (CUTOFF=50) 04/09/18 00:40 Alcohol, Quantitative 300.62800 mg/dL (0.0-5.0) H 04/08/18 21:40 ecg: sr nl intervals no ischemci changes echo 04/2018: nl lv/rv, mild mr/tr tele: sr cxr: clear lungs a/p: 57 m hx etoh abuse, cad/mi, icd, here with cp. 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
[2018-04-09] MEDS: FOLIC ACID 1 MG TABLET (FP) PO SCH (11:19)
[2018-04-09] MEDS: CYANOCOBALAMIN (VITAMIN B-12) 100 MCG TABLET PO SCH (11:19)
[2018-04-09] MEDS: THIAMINE HCL 100 MG TABLET (FP) PO SCH (11:19)
--- NOTE | 2018-04-09 15:07 | PN ---
S Progress Note (SOAP) Subjective: pt referred for consultation for alcohol intoxication , per MR brought into ED yesterday , today patient reports drinking 1-1.5 l whiskey / day x 3 days , reports tremors if not drinking , + withdrawal seizures most recently 2 weeks ago , + blackouts , + falls while intoxicated no injuries to self or others disclosed. PMHX significant for [place] , AICD 2007 , seen by cardiology today . Denies illiicts , denies tobacco use . 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 Some difficulty obtaining history from patient due to drowsiness, easily awakened by verbal stimuli. Currently on Librium taper started 5 am today , received 2 doses of Librium most recently @ 11:19 AM 04/09/18 . Objective: patient is resting in bed no shirt , wears street clothes and shoes , tremulous . HR 93 , moderate distress . Bilateral UE tremors , has difficulty with following tasks , i.e. finger -to- nose due to tremors . HEENT : MARIANA , EOMI , neck supple , normal voice , no trachea deviation . Resp ; no dsitress noted , no accessory muscle use . Cardiovascular : on telemetry monitoring , denies chest pain at this time . Abdomen : soft non- tender , no guarding , no rigidity , denies nausea/ vomiting / diarrhea , intact lunch tray at bedside . Extremities : bilateral tremors UE . Neuro : AAO x 3 , strength 5/5 , does not want to ambulate " I feel tired " , no nystagmus . 04/09/18 15:01 04/09/18 15:13 Vital Signs (72 hours) 04/08/18 04/08/18 04/08/18 20:16 20:45 22:55 Temperature 97.8 F Pulse Rate 105 H Pulse Rate [ 94 H 94 H Right Radial] Respiratory 16 18 18 Rate Blood Pressure 128/88 Blood Pressure 146/102 H 136/90 [Right Arm] O2 Sat by Pulse 94 L 96 95 Oximetry (%) 04/08/18 04/09/18 04/09/18 23:30 00:40 02:00 Temperature 98.2 F 98.4 F Pulse Rate 89 Pulse Rate [ 85 91 H Right Radial] Respiratory 14 16 18 Rate Blood Pressure 133/84 Blood Pressure 137/99 136/96 [Right Arm] O2 Sat by Pulse 95 97 98 Oximetry (%) 04/09/18 04/09/18 04/09/18 05:19 08:39 14:04 Temperature 98.1 F Pulse Rate 90 88 91 H Pulse Rate [ Right Radial] Respiratory 18 18 20 Rate Blood Pressure 129/69 123/86 127/80 Blood Pressure [Right Arm] O2 Sat by Pulse Oximetry (%) Abnormal Lab Results 04/08/18 04/08/18 04/08/18 21:40 21:40 21:40 Plt Count 117 L Eosinophils % Calcium 8.1 L AST 124 H ALT 116 H Creatine Kinase 441 H CK-MB (CK-2) 4.8 H Troponin I 0.17 H Total Protein Lipase Ur Specific [place] Alcohol, Quantitative 300.24932 H 04/08/18 04/09/18 04/09/18 21:40 00:07 00:52 Plt Count Eosinophils % Calcium AST ALT Creatine Kinase CK-MB (CK-2) Troponin I 0.20 H Total Protein Lipase 503 H Ur Specific [place] 1.006 L Alcohol, Quantitative 04/09/18 04/09/18 04/09/18 05:30 05:30 05:30 Plt Count 96 L Eosinophils % 5.0 H D Calcium 7.7 L AST 101 H ALT 96 H Creatine Kinase CK-MB (CK-2) Troponin I 0.17 H Total Protein 6.3 L Lipase Ur Specific [place] Alcohol, Quantitative Assessment: 04/09/18 15:07 Alcohol dependence with withdrawal Plan: 57 y.o. male w/ Etoh dependence with withdrawal, high risk for withdrawal seizures , medically managed detoxification. Suggest Librium taper : continue 50 mg x 2 more doses as scheduled, then 40 mg q 6 hrs x 24 hrs , then 25 mg q 6 hrs x 24 hrs , then 15 mg q 6 hrs x 24 hrs, then 10 mg q 6 hrs x 24 hrs then 10 mg bid x 24 hrs then 10 mg x once . Recommend inpatient rehabilitation for alcohol dependence upon detox completion if patient is amenable .
[2018-04-09] MEDS: chlordiazePOXIDE HCL 25 MG CAPSULE PO PRN ×2 (15:21→19:13)
--- NOTE | 2018-04-09 15:30 | PN ---
Physical Exam: SUBJECTIVE: Patient seen and examined at bedside. Acutely having alcohol withdrawals- tremulous, tachycardic, diaphoretic, however, no nausea or vomiting. Patient not currently having chest pain, states the pain was mainly when he arrived to the ED and he described it as a burning pain, however he is not having anymore pain. OBJECTIVE: Vital Signs Period Temp Pulse Resp BP Sys/Kohli Pulse Ox Last 24 Hr 97.8 F-98.4 F 85-105 14-20 123-146/69-102 94-98 GENERAL: The patient is awake, tremulous and diaphoretic. EYES: no scleral icterus. NECK: no JVD, no lymphadenopathy LUNGS:CTA B/L; no rales, rhonchi or wheezing HEART: tachycardic, regular rhythm, S1, S2 without murmur, rub or gallop. ABDOMEN: Soft, nontender, nondistended, normoactive bowel sounds, no guarding, no rebound, no hepatosplenomegaly, no masses. EXTREMITIES: 2+ pulses, warm, well-perfused, no edema, tremulous. PSYCH: Normal mood, normal affect. SKIN: Warm, dry, normal turgor, no rashes or lesions noted Laboratory Results - last 24 hr 04/08/18 04/08/18 04/08/18 21:40 21:40 21:40 WBC 5.5 RBC 4.78 Hgb 14.8 Hct 43.2 MCV 90.4 MCH 31.0 MCHC 34.3 RDW 13.4 Plt Count 117 L MPV 7.8 Absolute Neuts (auto) 3.5 Neutrophils % 62.9 Lymphocytes % 26.9 Monocytes % 7.8 Eosinophils % 2.2 Basophils % 0.2 Nucleated RBC % 0 PT with INR 11.50 INR 0.97 PTT (Actin FS) 28.9 Sodium 140 Potassium 3.7 Chloride 100 Carbon Dioxide 28 Anion Gap 12 BUN 12 Creatinine 0.7 Creat Clearance w eGFR > 60 Random Glucose 92 Calcium 8.1 L Phosphorus Magnesium 2.0 Total Bilirubin 0.9 AST 124 H ALT 116 H Alkaline Phosphatase 117 Creatine Kinase Creatine Kinase Index CK-MB (CK-2) Troponin I Total Protein 7.1 Albumin 4.0 Lipase Urine Color Urine Appearance Urine pH Ur Specific [place] Urine Protein Urine Glucose (UA) Urine Ketones Urine Blood Urine Nitrite Urine Bilirubin Urine Urobilinogen Ur Leukocyte Esterase Opiates Screen Methadone Screen Barbiturate Screen Phencyclidine Screen Ur Amphetamines Screen MDMA (Ecstasy) Screen Benzodiazepines Screen Cocaine Screen U Marijuana (THC) Screen Alcohol, Quantitative 300.36016 H 04/08/18 04/08/18 04/08/18 21:40 21:40 21:40 WBC RBC Hgb Hct MCV MCH MCHC RDW Plt Count MPV Absolute Neuts (auto) Neutrophils % Lymphocytes % Monocytes % Eosinophils % Basophils % Nucleated RBC % PT with INR INR PTT (Actin FS) Sodium Potassium Chloride Carbon Dioxide Anion Gap BUN Creatinine Creat Clearance w eGFR Random Glucose Calcium Phosphorus Magnesium Total Bilirubin AST ALT Alkaline Phosphatase Creatine Kinase 441 H Creatine Kinase Index 1.0 CK-MB (CK-2) 4.8 H Troponin I 0.17 H Total Protein Albumin Lipase 503 H Urine Color Urine Appearance Urine pH Ur Specific [place] Urine Protein Urine Glucose (UA) Urine Ketones Urine Blood Urine Nitrite Urine Bilirubin Urine Urobilinogen Ur Leukocyte Esterase Opiates Screen Methadone Screen Barbiturate Screen Phencyclidine Screen Ur Amphetamines Screen MDMA (Ecstasy) Screen Benzodiazepines Screen Cocaine Screen U Marijuana (THC) Screen Alcohol, Quantitative Cancelled 04/09/18 04/09/18 04/09/18 00:07 00:40 00:52 WBC RBC Hgb Hct MCV MCH MCHC RDW Plt Count MPV Absolute Neuts (auto) Neutrophils % Lymphocytes % Monocytes % Eosinophils % Basophils % Nucleated RBC % PT with INR INR PTT (Actin FS) Sodium Potassium Chloride Carbon Dioxide Anion Gap BUN Creatinine Creat Clearance w eGFR Random Glucose Calcium Phosphorus Magnesium Total Bilirubin AST ALT Alkaline Phosphatase Creatine Kinase Creatine Kinase Index CK-MB (CK-2) Troponin I 0.20 H Total Protein Albumin Lipase Urine Color Ltyellow Urine Appearance Clear Urine pH 6.0 Ur Specific [place] 1.006 L Urine Protein Negative Urine Glucose (UA) Negative Urine Ketones Negative Urine Blood Negative Urine Nitrite Negative Urine Bilirubin Negative Urine Urobilinogen 4.0 e.u/dl Ur Leukocyte Esterase Negative Opiates Screen Negative Methadone Screen Negative Barbiturate Screen Negative Phencyclidine Screen Negative Ur Amphetamines Screen Negative MDMA (Ecstasy) Screen Negative Benzodiazepines Screen Negative Cocaine Screen Negative U Marijuana (THC) Screen Negative Alcohol, Quantitative 04/09/18 04/09/18 04/09/18 05:30 05:30 05:30 WBC 4.4 RBC 4.44 Hgb 13.5 Hct 40.2 MCV 90.5 MCH 30.4 MCHC 33.6 RDW 13.5 Plt Count 96 L MPV 7.9 Absolute Neuts (auto) 2.6 Neutrophils % 59.5 Lymphocytes % 28.4 Monocytes % 6.8 Eosinophils % 5.0 H D Basophils % 0.3 Nucleated RBC % 0 PT with INR INR PTT (Actin FS) Sodium 141 Potassium 3.7 Chloride 103 Carbon Dioxide 26 Anion Gap 12 BUN 13 Creatinine 0.7 Creat Clearance w eGFR > 60 Random Glucose 78 Calcium 7.7 L Phosphorus 3.6 Magnesium 1.9 Total Bilirubin 1.0 AST 101 H ALT 96 H Alkaline Phosphatase 106 Creatine Kinase Creatine Kinase Index CK-MB (CK-2) Troponin I 0.17 H Total Protein 6.3 L Albumin 3.5 Lipase Urine Color Urine Appearance Urine pH Ur Specific [place] Urine Protein Urine Glucose (UA) Urine Ketones Urine Blood Urine Nitrite Urine Bilirubin Urine Urobilinogen Ur Leukocyte Esterase Opiates Screen Methadone Screen Barbiturate Screen Phencyclidine Screen Ur Amphetamines Screen MDMA (Ecstasy) Screen Benzodiazepines Screen Cocaine Screen U Marijuana (THC) Screen Alcohol, Quantitative Active Medications Generic Name Dose Route Start Last Admin Trade Name Freq PRN Reason Stop Dose Admin Aspirin 81 mg 04/10/18 10:00 Asa - PO DAILY BROCK Chlordiazepoxide HCl 50 mg 04/09/18 05:00 04/09/18 11:19 Librium - PO 04/09/18 23:01 50 mg [id number] BROCK Administration Chlordiazepoxide HCl 25 mg 04/10/18 05:00 Librium - PO 04/10/18 23:01 [id number] BROCK Chlordiazepoxide HCl 15 mg 04/11/18 05:00 Librium - PO 04/11/18 23:01 [id number] BROCK Chlordiazepoxide HCl 25 mg 04/09/18 01:26 04/09/18 15:21 Librium - PO 04/12/18 01:25 25 mg Q4H PRN Administration WITHDRAWAL(CONT SUBST) Chlordiazepoxide HCl 10 mg 04/12/18 05:00 Librium - PO 04/12/18 23:01 [id number] BROCK Cyanocobalamin 100 mcg 04/09/18 10:00 04/09/18 11:19 Vitamin B12 - PO 100 mcg DAILY BROCK Administration Diltiazem HCl 120 mg 04/09/18 15:30 Cardizem Cd - PO DAILY ON LICENSE OF [facility] Folic Acid 1 mg 04/09/18 10:00 04/09/18 11:19 Folic Acid - PO 1 mg DAILY BROCK Administration Heparin Sodium (Porcine) 5,000 unit 04/09/18 06:00 04/09/18 15:24 Heparin - SQ 5,000 unit TID BROCK Administration Thiamine HCl 100 mg 04/09/18 10:00 04/09/18 11:19 Vitamin B1 - PO 100 mg DAILY BROCK Administration ASSESSMENT/PLAN: Patient is a 57 y/o male with a history of CAD s/p SD with ACID and alcohol abuse who presents intoxicated with chest pain. #chest pain r/o ACS positive history of SD and ACID placement EKG: LVH, incomplete RBB, repeat EKG Echo oordered- results pending monitor on tele obs cardio consulted- no interventions at this time attempted to contact patients shank stitcher Dr. Lauren ([phone]) #alcohol intoxication patient currently withdrawing monitor CIWA, history of DT's in the past on Librium protocol consult Dr. Bliss, patient expresses wish to go to Detox; recs appreciated fall precautions seizure precautions #transaminitis AST/ALT downtrending f/u abd US f/u hepatitis panel #CAD history continue aspirin 81 mg daily continue patients diltizaem 120 daily started patient on atorvastatin 80 daily #mild thrombocytopenia unknown cause, alcohol marrow suppression vs splenomegaly due to portal hypertension Plt: 117 f/u abd US f/e/n NOT ON FLUIDS monitor electrolytes Problem List - Problems (1) Alcohol intoxication Code(s): F10.929 - ALCOHOL USE, UNSPECIFIED WITH INTOXICATION, UNSPECIFIED Qualifiers: Complication of substance-induced condition: uncomplicated Qualified Code(s ): F10.920 - Alcohol use, unspecified with intoxication, uncomplicated (2) Chest pain Code(s): R07.9 - CHEST PAIN, UNSPECIFIED Qualifiers: Chest pain type: unspecified Qualified Code(s): R07.9 - Chest pain, unspecified Visit type - Emergency Visit Emergency Visit: Yes ED Registration Date: 04/08/18 Care time: The patient presented to the Emergency Department on the above date and was hospitalized for further evaluation of their emergent condition. - New Patient This patient is new to me today: Yes Date on this admission: 04/09/18 - Critical Care Critical Care patient: No
[2018-04-09] MEDS ORDERED: FOLIC ACID INJECTION - 1 MG, THIAMINE HCL 100 MG, MULTIVIT INJECTION ADULT 10 ML in SOD... IVPB ONE (17:07)
--- NOTE | 2018-04-09 17:11 | PN ---
Teaching Attending Note ATTENDING PHYSICIAN STATEMENT I saw and evaluated the patient. I reviewed the resident's note and discussed the case with the resident. I agree with the resident's findings and plan as documented. SUBJECTIVE: 57 Y/O acitve ETOH abuser, , with CAD, has AICD inplace OBJECTIVE: Last Vital Signs Temp Pulse Resp BP Pulse Ox 98.1 F 91 H 20 127/80 98 04/09/18 14:04 04/09/18 14:04 04/09/18 14:04 04/09/18 14:04 04/09/18 02:00 CBCD in no distress, has mild tremors but states that he feels he is withdrawing MMM CVS:S1S2 CTAB abd; Bs+, no cirrhosis findings ext: No edema 2+ radial pulses, 1+ DP pulses B/L WBC 4.4 K/mm3 (4.0-10.0) 04/09/18 05:30 RBC 4.44 M/mm3 (4.00-5.60) 04/09/18 05:30 Hgb 13.5 GM/dL (11.7-16.9) 04/09/18 05:30 Hct 40.2 % (35.4-49) 04/09/18 05:30 MCV 90.5 fl (80-96) 04/09/18 05:30 MCHC 33.6 g/dl (32.0-35.9) 04/09/18 05:30 RDW 13.5 % (11.9-15.9) 04/09/18 05:30 Plt Count 96 K/MM3 (134-434) L 04/09/18 05:30 MPV 7.9 fl (7.5-11.1) 04/09/18 05:30 CMP Sodium 141 mmol/L (136-145) 04/09/18 05:30 Potassium 3.7 mmol/L (3.5-5.1) 04/09/18 05:30 Chloride 103 mmol/L (98-107) 04/09/18 05:30 Carbon Dioxide 26 mmol/L (21-32) 04/09/18 05:30 Anion Gap 12 MMOL/L (8-16) 04/09/18 05:30 BUN 13 mg/dL (7-18) 04/09/18 05:30 Creatinine 0.7 mg/dL (0.55-1.3) 04/09/18 05:30 Creat Clearance w eGFR > 60 (>60) 04/09/18 05:30 Random Glucose 78 mg/dL (74-106) 04/09/18 05:30 Calcium 7.7 mg/dL (8.5-10.1) L 04/09/18 05:30 Total Bilirubin 1.0 mg/dL (0.2-1) 04/09/18 05:30 AST 101 U/L (15-37) H 04/09/18 05:30 ALT 96 U/L (13-61) H 04/09/18 05:30 Alkaline Phosphatase 106 U/L (45-117) 04/09/18 05:30 Total Protein 6.3 g/dl (6.4-8.2) L 04/09/18 05:30 Albumin 3.5 g/dl (3.4-5.0) 04/09/18 05:30 CARDIAC ENZYMES Creatine Kinase 441 IU/L (26-308) H 04/08/18 21:40 Troponin I 0.17 ng/ml (0.00-0.05) H 04/09/18 05:30 ASSESSMENT AND PLAN: Etoh withdrawal: Gives HX of DT, C/W close monitoring, CIWA score C/W telemetry C/W librium and ativan C/W THIAMIN 100MG IV X3 DAYS, folic acid NSTEMI:most likely in the setting of tachycardia and demand ischemia, Will c/w Aspirin Will start on statin will get an Echo rate control on diltiazem after the results of the Ehco, and negative UTOX for cocaine will start on B blockers Will contact the environmental planner about the AICD and his HX of cardiac events He will need SPECT when off the active withdrawal send lipid panel, send A1C F/U TTE F/U cardiac markers KEP k>4, mg>2 Thrombocytopenia: likely due to Etoh abuse send HIV, will get liver US Etoh abuse: is willing to go to rehab and detox. FX; has AICD diet: cardiac DVT ppx: heparin SQ
[2018-04-09] MEDS: ATORVASTATIN CA 80 MG TABLET (FP) PO SCH (22:15)
[2018-04-10] MEDS: HEPARIN NA (PORCINE) 5,000 UNITS/ML 1ML VIAL SQ SCH ×3 (05:27→23:03)
[2018-04-10] MEDS: chlordiazePOXIDE HCL 25 MG CAPSULE PO SCH ×2 (05:27→11:46)
[2018-04-10] MEDS ORDERED: SODIUM CHLORIDE 1,000 ML IV SCH (06:00)
[2018-04-10 07:47] LABS: HEMATOCRIT 40.4 % (35.4-49); HEMOGLOBIN 13.5 GM/dL (11.7-16.9); MCH 30.5 pg (25.7-33.7); MCHC 33.3 g/dl (32.0-35.9); MEAN CELL VOLUME 91.8 fl (80-96); MEAN PLT VOLUME 8.6 fl (7.5-11.1); PLATELET COUNT 85 K/MM3 (134-434); RBC 4.41 M/mm3 (4.00-5.60); RDW 13.2 % (11.9-15.9); WHITE BLOOD COUNT 4.4 K/mm3 (4.0-10.0)
[2018-04-10 08:06] LABS: HEP.C VIRUS AB <0.1 s/co ratio (0.0-0.9)
[2018-04-10 08:40] LABS: ANION GAP 14 MMOL/L (8-16); BLOOD UREA NITROGEN 17 mg/dL (7-18); CALCIUM 8.1 mg/dL (8.5-10.1); CHLORIDE 100 mmol/L (98-107); CO2 23 mmol/L (21-32); CREATININE 0.6 mg/dL (0.55-1.3); GLUCOSE,RANDOM 66 mg/dL (74-106); MAGNESIUM 1.7 mg/dL (1.8-2.4); PHOSPHOROUS 2.8 mg/dL (2.5-4.9); POTASSIUM 3.7 mmol/L (3.5-5.1); SODIUM 138 mmol/L (136-145)
--- NOTE | 2018-04-10 09:29 | PN ---
Teaching Attending Note ATTENDING PHYSICIAN STATEMENT I saw and evaluated the patient. I reviewed the resident's note and discussed the case with the resident. I agree with the resident's findings and plan as documented. SUBJECTIVE: OBJECTIVE: ASSESSMENT AND PLAN: Patient is a 57 y/o male with a history of CAD s/p NV, HFrEF with an ICD and alcohol abuse who presents intoxicated with chest pain. #chest pain r/o ACS NSTEMI EKG: LVH, incomplete RBB, repeat EKG f/u with Echo monitor on tele obs cardio consulted- no interventions at this time #alcohol intoxication patient currently withdrawing monitor CIWA, history of DT's in the past d/c chlorodiazopoxide due to elevated liver enzymes will start the patient on lorazepam 2mg q6 hours PO - Lorazepam IV 2 mg q4hr as needed for agitation fall precautions seizure precautions #transaminitis AST/ALT downtrending f/u abd US f/u hepatitis panel #CAD history continue aspirin 81 mg daily consider d/c diltaizem if the patient has a decreased EF after cardiology evaluation started patient on atorvastatin 80 daily #mild thrombocytopenia unknown cause, alcohol marrow suppression vs splenomegaly due to portal hypertension f/e/n NOT ON FLUIDS monitor electrolytes
--- NOTE | 2018-04-10 09:32 | PN ---
Progress Note (short form) - Note Progress Note: Subjective:patient is laying down in his bed, he stated he feels better today, he denied any issues, he is willing to go to detox for his alcohol problem Objective: AAOx3 s1 and S2 RRR abdomen tender to touch in the lower left quadrant lungs CTA good air entry larry pitting edema PERRLA moist mucous membrane ASSESSMENT AND PLAN: Patient is a 57 y/o male with a history of CAD s/p CT, HFrEF with an ICD and alcohol abuse who presents intoxicated with chest pain. #chest pain r/o ACS NSTEMI EKG: LVH, incomplete RBB, repeat EKG f/u with Echo monitor on tele obs cardio consulted- no interventions at this time #alcohol intoxication patient currently withdrawing monitor CIWA, history of DT's in the past d/c chlorodiazopoxide due to elevated liver enzymes will start the patient on lorazepam 2mg q6 hours PO - Lorazepam IV 2 mg q4hr as needed for agitation fall precautions seizure precautions #transaminitis AST/ALT downtrending f/u abd US f/u hepatitis panel #CAD history continue aspirin 81 mg daily consider d/c diltaizem if the patient has a decreased EF after cardiology evaluation started patient on atorvastatin 80 daily #mild thrombocytopenia unknown cause, alcohol marrow suppression vs splenomegaly due to portal hypertension f/e/n NOT ON FLUIDS monitor electrolytes
[2018-04-10] MEDS: ASPIRIN 81 MG CHEWABLE TABLETS PO SCH (11:45)
[2018-04-10] MEDS: FOLIC ACID 1 MG TABLET (FP) PO SCH (11:46)
[2018-04-10] MEDS: THIAMINE HCL 100 MG TABLET (FP) PO SCH (11:46)
[2018-04-10] MEDS: CYANOCOBALAMIN (VITAMIN B-12) 100 MCG TABLET PO SCH (11:46)
[2018-04-10] MEDS: chlordiazePOXIDE HCL 25 MG CAPSULE PO PRN (11:47)
--- NOTE | 2018-04-10 11:48 | PN ---
Progress Note (short form) - Note Progress Note: s: no cp sob palps dizzy o: Vital Signs Period Temp Pulse Resp BP Sys/Kohli Pulse Ox Last 24 Hr 97.4 F-98.1 F 67-92 18-20 118-142/77-84 nad no jvd rrr s1s2 no mrg cta bl, nl eff aaox3 abd nt nd pos bs no jaundice diaphoresis no le e/c/c Current Medications Generic Name Dose Route Start Last Admin Trade Name Freq PRN Reason Stop Dose Admin Aspirin 81 mg 04/10/18 10:00 04/10/18 11:45 Asa - PO 81 mg DAILY BROCK Administration Atorvastatin Calcium 80 mg 04/09/18 22:00 04/09/18 22:15 Lipitor - PO 80 mg HS BROCK Administration Chlordiazepoxide HCl 25 mg 04/10/18 05:00 04/10/18 11:46 Librium - PO 04/10/18 23:01 25 mg [id number] BROCK Administration Chlordiazepoxide HCl 15 mg 04/11/18 05:00 Librium - PO 04/11/18 23:01 [id number] BROCK Chlordiazepoxide HCl 25 mg 04/09/18 01:26 04/10/18 11:47 Librium - PO 04/12/18 01:25 25 mg Q4H PRN Administration WITHDRAWAL(CONT SUBST) Chlordiazepoxide HCl 10 mg 04/12/18 05:00 Librium - PO 04/12/18 23:01 [id number] BROCK Cyanocobalamin 100 mcg 04/09/18 10:00 04/10/18 11:46 Vitamin B12 - PO 100 mcg DAILY BROCK Administration Diltiazem HCl 120 mg 04/09/18 15:30 04/10/18 11:46 Cardizem Cd - PO 120 mg DAILY BROCK Administration Folic Acid 1 mg 04/09/18 10:00 04/10/18 11:46 Folic Acid - PO 1 mg DAILY BROCK Administration Heparin Sodium (Porcine) 5,000 unit 04/09/18 06:00 04/10/18 05:27 Heparin - SQ 5,000 unit TID BROCK Administration Sodium Chloride 1,000 mls @ 42 mls/hr 04/10/18 06:00 04/10/18 07:03 Normal Saline - IV 04/11/18 05:49 42 mls/hr ASDIR BROCK Administration Thiamine HCl 100 mg 04/09/18 10:00 04/10/18 11:46 Vitamin B1 - PO 100 mg DAILY BROCK Administration CBC, BMP 04/10/18 06:15 04/10/18 06:15 ecg: sr nl intervals no ischemci changes echo 04/2018: nl lv/rv, mild mr/tr tele: sr, occ pvcs cxr: clear lungs a/p: 57 m hx etoh abuse, cad/mi, icd, here with cp. 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
[2018-04-10] MEDS ORDERED: LORazepam 2 MG/ML SDV VIAL IVPUSH PRN (11:51)
[2018-04-10] MEDS ORDERED: LORazepam 1 MG TABLET PO PRN (11:51)
[2018-04-10] MEDS: ATORVASTATIN CA 80 MG TABLET (FP) PO SCH (23:03)
[2018-04-11] MEDS ORDERED: chlordiazePOXIDE 5 MG CAPSULE PO SCH (05:00)
[2018-04-11] MEDS: HEPARIN NA (PORCINE) 5,000 UNITS/ML 1ML VIAL SQ SCH ×3 (06:04→22:57)
[2018-04-11 07:31] LABS: ALBUMIN 3.4 g/dl (3.4-5.0); ALK PHOS 112 U/L (45-117); ANION GAP 9 MMOL/L (8-16); BILIRUBIN,DIRECT 0.4 mg/dL (0.0-0.2); BILIRUBIN,TOTAL 1.2 mg/dL (0.2-1); BLOOD UREA NITROGEN 12 mg/dL (7-18); CALCIUM 8.1 mg/dL (8.5-10.1); CHLORIDE 102 mmol/L (98-107); CO2 26 mmol/L (21-32); CREATININE 0.7 mg/dL (0.55-1.3); GLUCOSE,RANDOM 95 mg/dL (74-106); POTASSIUM 3.4 mmol/L (3.5-5.1); SGOT/AST 195 U/L (15-37); SGPT/ALT 147 U/L (13-61); SODIUM 137 mmol/L (136-145); TOT PROT 6.1 g/dl (6.4-8.2)
--- NOTE | 2018-04-11 09:11 | PN ---
Progress Note (short form) - Note Progress Note: Subjective:patient is laying down in his bed, he stated he feels better today, he denied any issues, he is willing to go to detox for his alcohol problem Objective: AAOx3 s1 and S2 RRR abdomen tender to touch in the lower left quadrant lungs CTA good air entry larry pitting edema PERRLA moist mucous membrane ASSESSMENT AND PLAN: Patient is a 57 y/o male with a history of CAD s/p NC, HFrEF with an ICD and alcohol abuse who presents intoxicated with chest pain. #chest pain r/o ACS NSTEMI EKG: LVH, incomplete RBB, repeat EKG f/u with Echo monitor on tele obs cardio consulted- no interventions at this time #alcohol intoxication patient currently withdrawing monitor CIWA, history of DT's in the past d/c chlorodiazopoxide due to elevated liver enzymes (04/10/18) will decrease lorazepam to 1mg every 6 hours PO - Lorazepam IV 2 mg q4hr as needed for agitation - fall precautions - seizure precautions #transaminitis AST/ALT down trending f/u abd US f/u hepatitis panel #CAD history - continue aspirin 81 mg daily - diltiazem if the patient has a decreased EF after cardiology evaluation - started patient on atorvastatin 80 daily #mild thrombocytopenia unknown cause, alcohol marrow suppression vs splenomegaly due to portal hypertension f/e/n NOT ON FLUIDS monitor electrolytes
[2018-04-11] MEDS: ASPIRIN 81 MG CHEWABLE TABLETS PO SCH (10:38)
[2018-04-11] MEDS: THIAMINE HCL 100 MG TABLET (FP) PO SCH (10:39)
[2018-04-11] MEDS: FOLIC ACID 1 MG TABLET (FP) PO SCH (10:39)
[2018-04-11] MEDS: CYANOCOBALAMIN (VITAMIN B-12) 100 MCG TABLET PO SCH (10:39)
--- NOTE | 2018-04-11 12:17 | PN ---
Progress Note (short form) - Note Progress Note: s: no cp sob palps dizzy o: Vital Signs Period Temp Pulse Resp BP Sys/Kohli Pulse Ox Last 24 Hr 98.0 F-98.4 F 69-87 18-20 118-130/74-90 98 nad no jvd rrr s1s2 no mrg cta bl, nl eff aaox3 abd nt nd pos bs no jaundice diaphoresis no le e/c/c Current Medications Generic Name Dose Route Start Last Admin Trade Name Freq PRN Reason Stop Dose Admin Aspirin 81 mg 04/10/18 10:00 04/11/18 10:38 Asa - PO 81 mg DAILY BROCK Administration Atorvastatin Calcium 80 mg 04/09/18 22:00 04/10/18 23:03 Lipitor - PO 80 mg HS BROCK Administration Cyanocobalamin 100 mcg 04/09/18 10:00 04/11/18 10:39 Vitamin B12 - PO 100 mcg DAILY BROCK Administration Diltiazem HCl 120 mg 04/09/18 15:30 04/11/18 10:38 Cardizem Cd - PO 120 mg DAILY RBOCK Administration Folic Acid 1 mg 04/09/18 10:00 04/11/18 10:39 Folic Acid - PO 1 mg DAILY BROCK Administration Heparin Sodium (Porcine) 5,000 unit 04/09/18 06:00 04/11/18 06:04 Heparin - SQ 5,000 unit TID BROCK Administration Lorazepam 2 mg 04/10/18 11:51 04/11/18 10:39 Ativan Injection - IVPUSH 2 mg Q4H PRN Administration WITHDRAWAL(CONT SUBST) Lorazepam 1 mg 04/11/18 12:00 Ativan - PO Q6HPO BROCK Thiamine HCl 100 mg 04/09/18 10:00 04/11/18 10:39 Vitamin B1 - PO 100 mg DAILY BROCK Administration CBC, BMP 04/10/18 06:15 04/11/18 05:20 ecg: sr nl intervals no ischemci changes echo 04/2018: nl lv/rv, mild mr/tr tele: sr, occ pvcs cxr: clear lungs a/p: 57 m hx etoh abuse, cad/mi, icd, here with cp. 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
[2018-04-11] MEDS: LORazepam 1 MG TABLET PO SCH ×3 (17:23→22:57)
[2018-04-11] MEDS: ATORVASTATIN CA 80 MG TABLET (FP) PO SCH (22:56)
[2018-04-12] MEDS ORDERED: chlordiazePOXIDE 5 MG CAPSULE PO SCH (05:00)
[2018-04-12] MEDS: LORazepam 1 MG TABLET PO SCH ×4 (06:16→23:11)
[2018-04-12] MEDS: HEPARIN NA (PORCINE) 5,000 UNITS/ML 1ML VIAL SQ SCH ×3 (06:16→23:11)
[2018-04-12 06:49] LABS: BASO % 0.3 % (0-2.0); EOS % 5.9 % (0-4.5); HEMATOCRIT 40.3 % (35.4-49); HEMOGLOBIN 13.4 GM/dL (11.7-16.9); LYMPH % 32.6 % (8-40); MCH 30.5 pg (25.7-33.7); MCHC 33.4 g/dl (32.0-35.9); MEAN CELL VOLUME 91.4 fl (80-96); MEAN PLT VOLUME 8.8 fl (7.5-11.1); MONO % 10.2 % (3.8-10.2); PLATELET COUNT 94 K/MM3 (134-434); RBC 4.41 M/mm3 (4.00-5.60); RDW 13.4 % (11.9-15.9); WHITE BLOOD COUNT 4.7 K/mm3 (4.0-10.0)
[2018-04-12 07:03] LABS: ALBUMIN 3.3 g/dl (3.4-5.0); ALK PHOS 127 U/L (45-117); ANION GAP 9 MMOL/L (8-16); BILIRUBIN,DIRECT 0.3 mg/dL (0.0-0.2); BILIRUBIN,TOTAL 0.9 mg/dL (0.2-1); BLOOD UREA NITROGEN 14 mg/dL (7-18); CALCIUM 7.9 mg/dL (8.5-10.1); CHLORIDE 104 mmol/L (98-107); CO2 26 mmol/L (21-32); CREATININE 0.7 mg/dL (0.55-1.3); GLUCOSE,RANDOM 89 mg/dL (74-106); POTASSIUM 3.6 mmol/L (3.5-5.1); SGOT/AST 264 U/L (15-37); SGPT/ALT 225 U/L (13-61); SODIUM 139 mmol/L (136-145); TOT PROT 5.9 g/dl (6.4-8.2)
--- NOTE | 2018-04-12 08:48 | PN ---
Physical Exam: SUBJECTIVE: Patient seen and examined at bed OBJECTIVE: Vital Signs Period Temp Pulse Resp BP Sys/Kohli Pulse Ox Last 24 Hr 97.6 F-98.5 F 60-92 20-20 101-134/62-90 96-98 GENERAL: The patient is awake, alert, and fully oriented, in no acute distress. HEAD: Normal with no signs of trauma. EYES: PERRL, extraocular movements intact, sclera anicteric, conjunctiva clear. No ptosis. ENT: Ears normal, nares patent, oropharynx clear without exudates, moist mucous membranes. NECK: Trachea midline, full range of motion, supple. LUNGS: Breath sounds equal, clear to auscultation bilaterally, no wheezes, no crackles, no accessory muscle use. HEART: Regular rate and rhythm, S1, S2 without murmur, rub or gallop. ABDOMEN: Soft, nontender, nondistended, normoactive bowel sounds, no guarding, no rebound, no hepatosplenomegaly, no masses. EXTREMITIES: 2+ pulses, warm, well-perfused, no edema. NEUROLOGICAL: Cranial nerves II through XII grossly intact. Normal speech, gait not observed. PSYCH: Normal mood, normal affect. SKIN: Warm, dry, normal turgor, no rashes or lesions noted Laboratory Results - last 24 hr 04/12/18 04/12/18 05:30 05:30 WBC 4.7 RBC 4.41 Hgb 13.4 Hct 40.3 MCV 91.4 MCH 30.5 MCHC 33.4 RDW 13.4 Plt Count 94 L MPV 8.8 Absolute Neuts (auto) 2.4 Neutrophils % 51.0 Lymphocytes % 32.6 Monocytes % 10.2 Eosinophils % 5.9 H Basophils % 0.3 Nucleated RBC % 0 Sodium 139 Potassium 3.6 Chloride 104 Carbon Dioxide 26 Anion Gap 9 BUN 14 Creatinine 0.7 Creat Clearance w eGFR > 60 Random Glucose 89 Calcium 7.9 L Total Bilirubin 0.9 Direct Bilirubin 0.3 H AST 264 H ALT 225 H Alkaline Phosphatase 127 H Total Protein 5.9 L Albumin 3.3 L Active Medications Generic Name Dose Route Start Last Admin Trade Name Freq PRN Reason Stop Dose Admin Aspirin 81 mg 04/10/18 10:00 04/11/18 10:38 Asa - PO 81 mg DAILY BROCK Administration Atorvastatin Calcium 80 mg 04/09/18 22:00 04/11/18 22:56 Lipitor - PO 80 mg HS BROCK Administration Cyanocobalamin 100 mcg 04/09/18 10:00 04/11/18 10:39 Vitamin B12 - PO 100 mcg DAILY BROCK Administration Diltiazem HCl 120 mg 04/09/18 15:30 04/11/18 10:38 Cardizem Cd - PO 120 mg DAILY BROCK Administration Folic Acid 1 mg 04/09/18 10:00 04/11/18 10:39 Folic Acid - PO 1 mg DAILY BROKC Administration Heparin Sodium (Porcine) 5,000 unit 04/09/18 06:00 04/12/18 06:16 Heparin - SQ 5,000 unit TID BROCK Administration Lorazepam 2 mg 04/10/18 11:51 04/11/18 10:39 Ativan Injection - IVPUSH 2 mg Q4H PRN Administration WITHDRAWAL(CONT SUBST) Lorazepam 1 mg 04/12/18 07:45 Ativan - PO Q8H BROCK Thiamine HCl 100 mg 04/09/18 10:00 04/11/18 10:39 Vitamin B1 - PO 100 mg DAILY BROCK Administration ASSESSMENT/PLAN: Patient is a 57 y/o male with a history of CAD s/p MD with ACID and alcohol abuse who presents intoxicated with chest pain. #chest pain r/o ACS positive history of MD and ACID placement EKG: LVH, incomplete RBB, repeat EKG Echo done- EF 50-55%, mild MR and TR monitor on tele obs cardio consulted- no interventions at this time attempted to contact patients settlement technician Dr. Lauren ([phone]) #alcohol intoxication patient currently withdrawing monitor CIWA, history of DT's in the past on stivan protocol; 1mg q6H- will taper consult Dr. Bliss, patient expresses wish to go to Detox; recs appreciated fall precautions seizure precautions #transaminitis AST/ALT uptrending ( patient was on librium protocol until it was d/c yesterday) f/u abd US hepatitis panel negative #CAD history continue aspirin 81 mg daily continue patients diltizaem 120 daily started patient on atorvastatin 80 daily #mild thrombocytopenia unknown cause, alcohol marrow suppression vs splenomegaly due to portal hypertension Plt: 117 f/u abd US f/e/n NOT ON FLUIDS monitor electrolytes Problem List - Problems (1) Alcohol intoxication Code(s): F10.929 - ALCOHOL USE, UNSPECIFIED WITH INTOXICATION, UNSPECIFIED Qualifiers: Complication of substance-induced condition: uncomplicated Qualified Code(s ): F10.920 - Alcohol use, unspecified with intoxication, uncomplicated (2) Chest pain Code(s): R07.9 - CHEST PAIN, UNSPECIFIED Qualifiers: Chest pain type: unspecified Qualified Code(s): R07.9 - Chest pain, unspecified Visit type - Emergency Visit Emergency Visit: Yes ED Registration Date: 04/12/18 Care time: The patient presented to the Emergency Department on the above date and was hospitalized for further evaluation of their emergent condition. - New Patient This patient is new to me today: No - Critical Care Critical Care patient: No
[2018-04-12] MEDS: ASPIRIN 81 MG CHEWABLE TABLETS PO SCH (09:49)
[2018-04-12] MEDS: CYANOCOBALAMIN (VITAMIN B-12) 100 MCG TABLET PO SCH (09:49)
[2018-04-12] MEDS: FOLIC ACID 1 MG TABLET (FP) PO SCH (09:49)
[2018-04-12] MEDS: THIAMINE HCL 100 MG TABLET (FP) PO SCH (09:49)
--- NOTE | 2018-04-12 14:43 | PN ---
Progress Note (short form) - Note Progress Note: s: no cp sob palps dizzy o: Vital Signs Period Temp Pulse Resp BP Sys/Kohli Pulse Ox Last 24 Hr 97.2 F-98.5 F 60-92 20-20 101-124/62-90 96-98 nad no jvd rrr s1s2 no mrg cta bl, nl eff aaox3 abd nt nd pos bs no jaundice diaphoresis no le e/c/c Current Medications Aspirin (Asa -) 81 mg PO DAILY [facility] Last Admin: 04/12/18 09:49 Dose: 81 mg Atorvastatin Calcium (Lipitor -) 80 mg PO HS [facility] Last Admin: 04/11/18 22:56 Dose: 80 mg Cyanocobalamin (Vitamin B12 -) 100 mcg PO DAILY [facility] Last Admin: 04/12/18 09:49 Dose: 100 mcg Diltiazem HCl (Cardizem Cd -) 120 mg PO DAILY [facility] Last Admin: 04/12/18 09:49 Dose: 120 mg Folic Acid (Folic Acid -) 1 mg PO DAILY [facility] Last Admin: 04/12/18 09:49 Dose: 1 mg Heparin Sodium (Porcine) (Heparin -) 5,000 unit SQ TID [facility] Last Admin: 04/12/18 06:16 Dose: 5,000 unit Lorazepam (Ativan Injection -) 2 mg IVPUSH Q4H PRN PRN Reason: WITHDRAWAL(CONT SUBST) Last Admin: 04/11/18 10:39 Dose: 2 mg Lorazepam (Ativan -) 1 mg PO Q8H [facility] Last Admin: 04/12/18 09:49 Dose: 1 mg Thiamine HCl (Vitamin B1 -) 100 mg PO DAILY [facility] Last Admin: 04/12/18 09:49 Dose: 100 mg ecg: sr nl intervals no ischemci changes echo 04/2018: nl lv/rv, mild mr/tr tele: sr, occ pvcs cxr: clear lungs a/p: 57 m hx etoh abuse, cad/mi, icd, here with cp. 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
--- NOTE | 2018-04-12 14:47 | PN ---
Teaching Attending Note Name of Resident: Eufemia Smith ATTENDING PHYSICIAN STATEMENT I saw and evaluated the patient. I reviewed the resident's note and discussed the case with the resident. I agree with the resident's findings and plan as documented. SUBJECTIVE:asymptomatic. denies CP, SOB, fever, chills, N/V/C/D, RAMSAY, blurred vision, auditory/visual hallucinations OBJECTIVE: Last Vital Signs Temp Pulse Resp BP Pulse Ox 97.2 F L 83 20 111/76 98 04/12/18 14:00 04/12/18 14:00 04/12/18 14:00 04/12/18 14:00 04/12/18 08:42 General NAD ASSESSMENT AND PLAN: 57 y/o male with a history of CAD s/p CA, HFrEF with an ICD and alcohol abuse who presents intoxicated with chest pain 1. CP- r/o acs. 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 echo done. Cardio on board. cont asa. statin started here 2. Acute ETOH intoxication- CIWA 0. initially started on librium and then switched to ativan due to elevated transaminitis. will decrease ativan to 1mg Q8H with plan to d/c tomorrow. spoke with Dr Morris who also agrees with stopping bzd for withdrawal at this time as past the time frame for DT's. interested in inpatient rehab however no beds currently available. will call again tomorrow to see if any beds available. counselled on risks assoc with continued etoh use and increase risk of mortality. on thiamine/folate/MVI 3. Hypomagnesemia- replete 4. Hypokalemia- replete 5. Transaminitis- due to ETOH use, slight uptrend could likely be due to libirum and has already been switched. will need LFT monitoring as outpatient especially with initiation of statin use here. hep panel negative 6. Thrombocytopenia- due to ETOH vs spleenomegaly. no signs of bleeding. stable 7. DVT ppx- hep sq 8. d/c planning tomorrow after completion of detox
[2018-04-12 18:24] VITALS: BMI 25.4
[2018-04-12] MEDS: ATORVASTATIN CA 80 MG TABLET (FP) PO SCH (23:11)
[2018-04-13] MEDS: HEPARIN NA (PORCINE) 5,000 UNITS/ML 1ML VIAL SQ SCH ×2 (06:17→13:32)
[2018-04-13 07:04] LABS: ALBUMIN 3.4 g/dl (3.4-5.0); ALK PHOS 129 U/L (45-117); ANION GAP 9 MMOL/L (8-16); BILIRUBIN,TOTAL 0.7 mg/dL (0.2-1); BLOOD UREA NITROGEN 18 mg/dL (7-18); CALCIUM 8.3 mg/dL (8.5-10.1); CHLORIDE 105 mmol/L (98-107); CO2 26 mmol/L (21-32); CREATININE 0.8 mg/dL (0.55-1.3); GLUCOSE,RANDOM 88 mg/dL (74-106); POTASSIUM 3.6 mmol/L (3.5-5.1); SGOT/AST 224 U/L (15-37); SGPT/ALT 236 U/L (13-61); SODIUM 139 mmol/L (136-145); TOT PROT 5.9 g/dl (6.4-8.2)
[2018-04-13] MEDS: LORazepam 1 MG TABLET PO SCH (08:40)
[2018-04-13] MEDS: THIAMINE HCL 100 MG TABLET (FP) PO SCH (09:28)
[2018-04-13] MEDS: CYANOCOBALAMIN (VITAMIN B-12) 100 MCG TABLET PO SCH (09:28)
[2018-04-13] MEDS: ASPIRIN 81 MG CHEWABLE TABLETS PO SCH (09:28)
[2018-04-13] MEDS: FOLIC ACID 1 MG TABLET (FP) PO SCH (09:28)
--- NOTE | 2018-04-13 11:20 | PN ---
Teaching Attending Note Name of Resident: Eufemia Smith ATTENDING PHYSICIAN STATEMENT I saw and evaluated the patient. I reviewed the resident's note and discussed the case with the resident. I agree with the resident's findings and plan as documented. SUBJECTIVE:asymptomatic. not interested in inpatient rehab at [facility]. desires to do outpatient programs. denies Cp, SOB, fever, chills, N/V/C/d OBJECTIVE: Last Vital Signs Temp Pulse Resp BP Pulse Ox 98.0 F 86 20 129/94 96 04/13/18 10:00 04/13/18 10:00 04/13/18 10:00 04/13/18 10:00 04/13/18 09:00 General NAD ASSESSMENT AND PLAN: 57 y/o male with a history of CAD s/p CA, HFrEF with an ICD and alcohol abuse who presents intoxicated with chest pain 1. CP- r/o acs. 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 echo done. Cardio on board. cont asa. statin started here 2. Acute ETOH intoxication- CIWA 0. completed ativan detox this am. wants outpatient programs and states he already looked at meetings and plans on one tonight. encourage sobriety with risks assoc alfred carvajal 3. Hypomagnesemia- resolved 4. Hypokalemia- resolved. 5. Transaminitis- due to ETOH use, stable. will need repeat LFT next week to ensure not worsening also in setting of statin treatment. 6. Thrombocytopenia- due to ETOH vs spleenomegaly. no signs of bleeding. stable 7. DVT ppx- hep sq 8. d/c home
--- NOTE | 2018-04-13 11:47 | PN ---
Progress Note (short form) - Note Progress Note: s: no cp sob palps dizzy; brief afib with rvr this AM, now in sr o: Vital Signs Period Temp Pulse Resp BP Sys/Kohli Pulse Ox Last 24 Hr 97.2 F-98.3 F 75-87 18-20 103-129/55-94 96-96 nad no jvd rrr s1s2 no mrg cta bl, nl eff aaox3 abd nt nd pos bs no jaundice diaphoresis no le e/c/c Current Medications Generic Name Dose Route Start Last Admin Trade Name Leonard PRN Reason Stop Dose Admin Aspirin 81 mg 04/10/18 10:00 04/13/18 09:28 Asa - PO 81 mg DAILY BROCK Administration Atorvastatin Calcium 80 mg 04/09/18 22:00 04/12/18 23:11 Lipitor - PO 80 mg HS BROCK Administration Cyanocobalamin 100 mcg 04/09/18 10:00 04/13/18 09:28 Vitamin B12 - PO 100 mcg DAILY BROCK Administration Diltiazem HCl 120 mg 04/09/18 15:30 04/13/18 09:28 Cardizem Cd - PO 120 mg DAILY BROCK Administration Folic Acid 1 mg 04/09/18 10:00 04/13/18 09:28 Folic Acid - PO 1 mg DAILY BROCK Administration Heparin Sodium (Porcine) 5,000 unit 04/09/18 06:00 04/13/18 06:17 Heparin - SQ 5,000 unit TID BROCK Administration Lorazepam 1 mg 04/12/18 07:45 04/13/18 08:40 Ativan - PO 1 mg Q8H BROCK Administration Thiamine HCl 100 mg 04/09/18 10:00 04/13/18 09:28 Vitamin B1 - PO 100 mg DAILY BROCK Administration ecg: sr nl intervals no ischemci changes echo 04/2018: nl lv/rv, mild mr/tr tele: afib with rvr 140s briefly, now in sr cxr: clear lungs a/p: 57 m hx etoh abuse, cad/mi, icd, here with cp. 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 On further discussion with pt he reports hx of afib for many years. He was on ac in past but was stopped due to bleeding after trauma. Given his continued etoh abuse he remains a risk for trauma/bleeding so will cont asa 81 only. He remains in sr now. Would monitor on tele until late afternoon and if remains in sr then ok for dc from cardiac pov. He will f/u with his outpt cardio.
[2018-04-13 14:36] VITALS: BP 118/80; PULSE 94; TEMP 98.2
--- NOTE | 2018-04-13 15:45 | DS ---
Physical Exam: SUBJECTIVE: Patient seen and examined at bedside. no acute events overnight. patient has received his last dose of the ativan protocol and is no longer withdrawing- he denies any CP/SOB/N/v fevers or chills OBJECTIVE: Vital Signs Period Temp Pulse Resp BP Sys/Kohli Pulse Ox Last 24 Hr 97.5 F-98.3 F 75-94 18-20 103-129/55-94 96-96 PHYSICAL EXAM GENERAL: The patient is awake, alert, and fully oriented, in no acute distress. EYES:no scleral icterus . NECK: no JVD, no lymphadenopathy LUNGS: CTA B/L; no rales, rhonchi or wheezing. HEART: Regular rate and rhythm, S1, S2 without murmur, rub or gallop. ABDOMEN: Soft, nontender, nondistended, normoactive bowel sounds, no guarding, no rebound, no hepatosplenomegaly, no masses. EXTREMITIES: 2+ pulses, warm, well-perfused, no edema. PSYCH: Normal mood, normal affect. SKIN: Warm, dry, normal turgor, no rashes or lesions noted. LABS Laboratory Results - last 24 hr 04/13/18 06:00 Sodium 139 Potassium 3.6 Chloride 105 Carbon Dioxide 26 Anion Gap 9 BUN 18 Creatinine 0.8 Creat Clearance w eGFR > 60 Random Glucose 88 Calcium 8.3 L Total Bilirubin 0.7 AST 224 H ALT 236 H Alkaline Phosphatase 129 H Total Protein 5.9 L Albumin 3.4 HOSPITAL COURSE: Date of Admission:04/12/18 57 y/o male who was brought into the ER by his friends after experiencing burning chest pain after a long night of drinking. on arrival patients troponin was 0.17 and and some T wave chganges in lateral leads. in addition, patient was very intoxicated with an alcohol level of 300 so he was started on librium protocol in addition to a high dose statin in conjunction with him home dose of cardizem 120 mg and aspirin 81 daily and was transferred to telemtwtry floor. patients LFTS began to rise so librium protocol was switched to ativan protocol. he no longer had chest pain, and was stable from a cardiovascular standpoint. after 3 days he was done withdrawing however, he went into rapid afib with RVR which was not seen throughout his stay. he had a remote history of afib where he was placed on AC however he had a bleed so was taken off AC. the afib only remained for a few seconds and patient went back into sinus and was stable to be discharged with follow up with the cold roll operator. in regards to his alcohol use, patient did not want to go to an inpatient rehab but was willing to go to AA meetings on an outpatient setting. Date of Discharge: 04/13/18 Minutes to complete discharge: 39 Discharge Summary Reason For Visit: ELEVATED TROPONIN I LEVEL,ALCHOL WITHDRAWAL SYNDRO Current Active Problems Alcohol intoxication (Acute) Alcohol withdrawal (Acute) Chest pain (Acute) Thrombocytopenia (Acute) Transaminitis (Acute) Condition: Stable - Instructions Diet, Activity, Other Instructions: You were brought into the ER by your friends after complaining of chest pain after a night of drinking. WE did an EKG which did show some changes and the cardiac enzymes were elevated which shows that there was some muscle damage however, we trended them and they decreased. We had a cold roll operator come and evaluate you. We did an echocardiogram which took a picture of your heart which showed a normal ejection fraction and no other acute abnormalities. In addition , we started you on a cholesterol medication called atorvastatin 80mg daily. We had you a monitored cardiac floor. IN regards to your drinking, you came in shaking and your heart rate was very high- we started you on a librium protocol and monitored your withdrawal symptoms. We had a detox doctor come and talk to you who thought you would benefit from going to a rehab facility for your drinking. Your liver enzymes noted to be high, this can be due to your drinking and need to be monitored. You should have them repeated next week. After a few days, your chest and withdrawal symptoms diminished and you were stable enough to be discharged. We are also recommending that you go to AA meetings or a similar program for your drinking Please resume all of your home medications in addition: -please take atorvastatin 80mg daily for your cholesterol Referrals: -we are referring you to a primary care doctor that we advise you to follow up with in one week, and also to get your liver enzymes retested as they were elevated in the hospital -we advise that you follow up with your cold roll operator, Dr. Lauren in one to two weeks. if you are unable to see them please follow up with the cardiolgist you saw here. Abstain from drinking as this will worsening your liver and heart problems and increase your risk of early . *if you begin to experience chest pain, shortness, of breath, nausea/vomiting, fevers please return to the emergency room immediately Referrals: Phillip Teixeira MD [Staff Physician] - 1 Week (primary care) Rudy Lee MD [Staff Physician] - (cardiolgy) Disposition: HOME - Home Medications Comprehensive Discharge Medication List: Ambulatory Orders Aspirin [ASA -] 81 mg PO DAILY 04/08/18 Diltiazem HCl [Diltiazem 24Hr ER] 120 mg PO DAILY 04/09/18 Atorvastatin Ca [Lipitor] 80 mg PO HS 30 Days #30 tablet 04/13/18 Problem List - Problems (1) Alcohol intoxication Code(s): F10.929 - ALCOHOL USE, UNSPECIFIED WITH INTOXICATION, UNSPECIFIED Qualifiers: Complication of substance-induced condition: uncomplicated Qualified Code(s ): F10.920 - Alcohol use, unspecified with intoxication, uncomplicated (2) Chest pain Code(s): R07.9 - CHEST PAIN, UNSPECIFIED Qualifiers: Chest pain type: unspecified Qualified Code(s): R07.9 - Chest pain, unspecified This patient is new to me today: No Emergency Visit: Yes ED Registration Date: 04/12/18 Care time: The patient presented to the Emergency Department on the above date and was hospitalized for further evaluation of their emergent condition. Critical Care patient: No - Discharge Referral Referred to [facility] Med P.C.: No
--- NOTE | 2018-04-13 16:21 | EKG ---
Test Reason : Blood Pressure : / mmHG Vent. Rate : 114 BPM Atrial Rate : 136 BPM P-R Int : 000 ms QRS Dur : 106 ms QT Int : 322 ms P-R-T Axes : 000 -35 000 degrees QTc Int : 443 ms ATRIAL FIBRILLATION WITH RAPID VENTRICULAR RESPONSE LEFT AXIS DEVIATION INCOMPLETE RIGHT BUNDLE BRANCH BLOCK MODERATE VOLTAGE CRITERIA FOR LVH, MAY BE NORMAL VARIANT NONSPECIFIC ST ABNORMALITY ABNORMAL ECG WHEN COMPARED WITH ECG OF 09-APR-2018 00:21, ATRIAL FIBRILLATION HAS REPLACED SINUS RHYTHM Confirmed by MD Anuel, Alvaro ([id number]) on 04/13/2018 4:20:40 PM Referred By: Confirmed By:Alvaro Agee MD
== END 2018-04-13 15:51 | disposition home or self-care (01) | DRG 897 ==
LOC: JER 20:12 → JERBED 23:38 → J4W 04-09 02:28 → OBSVTOIN 04-10 13:47 → INTOOBSV 04-10 13:47 → J4W 04-11 14:09 → OBSVTOIN 04-12 07:36
PROVIDERS: ADMIT Internal Medicine; ATTEND Internal Medicine
DX: F10.220 Alcohol dependence with intoxication, uncomplicated (principal); I50.22 Chronic systolic (congestive) heart failure; F10.230 Alcohol dependence with withdrawal, uncomplicated; I25.10 Atherosclerotic heart disease of native coronary artery without angina pectoris; I25.2 Old myocardial infarction; I48.0 Paroxysmal atrial fibrillation; Z95.810 Presence of automatic (implantable) cardiac defibrillator; I45.10 Unspecified right bundle-branch block; R74.0 Nonspecific elevation of levels of transaminase and lactic acid dehydrogenase [LDH]; D69.6 Thrombocytopenia, unspecified; R07.89 Other chest pain; I11.0 Hypertensive heart disease with heart failure; E83.42 Hypomagnesemia; E87.6 Hypokalemia
CPT/HCPCS: 36415; 71045-TC-FY; 80048; 80053; 80074; 80076; 80307; 81003; 82550; 82553; 83690; 83735; 84100; 84484; 85025; 85027; 85610; 85730; 87086; 90688; 90732; 93005; 93010; 93306-TC; 99285-25; G0008; G0009; G0378; J1644; J7030